=== PATIENT | female | born 1990 | race Caucasian/White ===

== ENCOUNTER 2017-01-09 11:56 | Inpatient (IN) | payer OTHER ==
--- NOTE | ~2017-01-09 | PN ---
Unit #: [id number] #: [id number] Patient: NICOLASA VALERA [id number] [facility] [address] [place] [address] [id number] I MR#: [id number] NAME: NICOLASA VALERA ROOM: 16 Age: 26 Sex: F Admission Date: 01/09/2017 : 1990 Attending Physician: Pernell Santa M.D. Admitting Physician: Phyllis Miller PROGRESS NOTES DATE January 12, 2017 DISCUSSION Ms. Valera is a 26-year-old white female, who was seen today and chart was reviewed and the case was discussed with the staff. She reports doing much better and she feels the medications have been effective at controlling her symptoms. Meanwhile, she has been coming to therapy groups and has been participating. MENTAL STATUS EXAMINATION Young white female, who was casually dressed with fair personal hygiene and appears to be in no acute distress or discomfort. She was awake and alert on interaction with intact orientation. Her mood was anxious with a congruent affect. Her speech is slow and goal-directed. She denies any suicidal or homicidal ideations, and also denies any auditory or visual hallucinations. Her insight and judgment remain slightly impaired. TREATMENT PLAN 1. We will continue her on her current medications and treatment protocol, and will monitor her response, and make further adjustments as needed. 2. We will continue to followup. Dictated by... Phyllis Miller/zeina TD: 01/13/2017 05:00 JOB #: [id number] Unit #: [id number] #: [id number] Patient: NICOLASA VALERA PROGRESS NOTES X Pernell Santa MD PROGRESS NOTE
--- NOTE | ~2017-01-09 | DS ---
Unit #: [id number] #: [id number] Patient: [facility] VALERA [id number] [facility] [place] [address] [id number] I MR#: [id number] NAME: NICOLASA VALERA ROOM: [facility] Age: 26 Sex: F Admission Date: 01/09/2017 : 1990 Discharge Date: 01/14/2017 Attending Physician: Pernell Santa M.D. DISCHARGE SUMMARY IDENTIFYING DATA Ms. Valera is a 26-year-old white female, who is a resident of [place], [place] and was brought to the hospital emergency room and transferred to us on a voluntary basis. DISCHARGE DIAGNOSES Psychiatric: Major depressive disorder, recurrent, moderate, without psychotic features; generalized anxiety disorder. Medical: None. Stressors: Moderate psychosocial stressors. HISTORY OF PRESENT ILLNESS Please see initial psychiatric evaluation for details. PAST PSYCHIATRIC HISTORY Please see initial psychiatric evaluation for details. PAST MEDICAL HISTORY Please see initial psychiatric evaluation for details. HOSPITAL COURSE The patient was admitted to the adult psychiatric unit at [facility] and was oriented to the hospital environment. Routine p.r.n. medications were initiated and she was started back on her home medications and medications were adjusted. She was taking the medications regularly and was tolerating them fairly well and was able to show a decent therapeutic response and as such, it was decided that she will be discharged home and will continue treatment on an outpatient basis. DISCHARGE MEDICATIONS Effexor XR 75 mg a day for depression and BuSpar 10 mg b.i.d. for anxiety. DISCHARGE CONDITION Stable. PROGNOSIS Fair. Dictated by... Phyllis Miller/angie Unit #: [id number] #: [id number] Patient: NICOLASA VALERA TD: 01/15/2017 00:15 JOB #: [id number] DISCHARGE SUMMARY X Pernell Santa MD X DISCHARGE SUMMARY
--- NOTE | ~2017-01-09 | PN ---
Unit #: [id number] #: [id number] Patient: NICOLASA VALERA [id number] [facility] [address] [place] [address] [id number] I MR#: [id number] NAME: NICOLASA VALERA ROOM: P131 Age: 26 Sex: F Admission Date: 01/09/2017 : 1990 Attending Physician: Pernell Santa M.D. Admitting Physician: Phyllis Miller NOTES DATE 01/13/2017 DISCUSSION Ms. Valera is a 26-year-old white female who was seen today and chart was reviewed and case was discussed with the staff. She has been doing fairly well and has been reporting improvement in her depressive symptoms. Meanwhile, she has been cooperative with treatment recommendations and has been taking medications and tolerating them fairly well with no reported side effects. MENTAL STATUS EXAMINATION Young white female who was casually dressed with fair personal hygiene and appears to be in no acute distress or discomfort. She was awake and alert on interaction with intact orientation. Her mood was anxious and depressed with congruent affect. She denies any suicidal or homicidal ideation. Her insight and judgement remains slightly impaired. TREATMENT PLAN 1. Will continue on current medications and treatment protocol and will monitor her response to the medications and make further adjustments as needed. 2. Will continue to follow up. Dictated by... Phyllis Miller/teena TD: 01/14/2017 15:46 JOB #: [id number] Unit #: [id number] #: [id number] Patient: NICOLASA VALERA PROGRESS NOTES X Pernell Santa MD X PROGRESS NOTE
--- NOTE | ~2017-01-09 | PN ---
Unit #: [id number] #: [id number] Patient: NICOLASA VALERA [id number] [facility] [address] [place] [address] [id number] I MR#: [id number] NAME: NICOLASA VALERA ROOM: 16 Age: 26 Sex: F Admission Date: 01/09/2017 : 1990 Attending Physician: Pernell Santa M.D. Admitting Physician: Phyllis Miller PROGRESS NOTES DATE OF SERVICE 01/10/2017 DISCUSSION Ms. Valera is a 26-year-old white female who was seen today. Chart was reviewed and case was discussed with the staff. She has been anxious, withdrawn, depressed, and rather seclusive to herself. Meanwhile, she has been cooperative with the treatment recommendations and has been taking the medications and tolerating them fairly well with no reported side effects. MENTAL STATUS EXAMINATION Young white female who is casually dressed with fair personal hygiene, appears to be in no acute distress or discomfort. She was awake and alert on interaction with intact orientation. Her mood is anxious and depressed with congruent affect. Speech is slow and goal-directed. She reports having suicidal ideations and denies any homicidal ideations, and also denies any auditory or visual hallucinations. Her insight and judgment remain slightly impaired. TREATMENT PLAN 1. We will continue her on her current medications and treatment protocol. We will monitor her response to the medications and make further adjustments as needed. 2. We will continue to follow up. Dictated by... Phyllis Miller/jessica TD: 01/11/2017 11:41 JOB #: [id number] Unit #: [id number] #: [id number] Patient: NICOLASA VALERA PROGRESS NOTES X Pernell Santa MD PROGRESS NOTE
--- NOTE | ~2017-01-09 | HP ---
Unit #: [id number] #: [id number] Patient: DAYLIN VALERA [id number] [place] [address] [id number] I MR#: [id number] NAME: DAYLIN VALERA ROOM: 16 Age: 26 Sex: F Admission Date: 01/09/2017 : 1990 Attending Physician: Pernell Santa M.D. Admitting Physician: Pernell Santa M.D. HISTORY AND PHYSICAL HISTORY OF PRESENT ILLNESS Daylin is a 26 year old admitted to [address] [place] [address] with depression and verbalizing wanting to hurt herself. PAST MEDICAL HISTORY Nothing significant. PAST SURGICAL HISTORY Nothing reported. ALLERGIES Cyclobenzaprine. SOCIAL HISTORY Smokes one-half pack per day. Drinks alcohol rarely and denies illicit drug use. FAMILY HISTORY Medically noncontributory. REVIEW OF SYSTEMS CONSTITUTIONAL: No fever or chills. HEENT: Denies any sore throat, ear pain or runny nose. CARDIOVASCULAR: Denies chest pain, irregular heart rhythm or palpitations. CHEST: Denies shortness of breath or cough. No hemoptysis. GASTROINTESTINAL: Denies nausea, vomiting, diarrhea or chronic constipation. ENDOCRINE: Denies history of increased thirst or urination. No recent significant weight loss or gain. GENITOURINARY: Denies dysuria, frequency, or hematuria. SKIN: Denies any rashes. HEMATOLOGIC: Denies history of increased bleeding or bruising. MUSCULOSKELETAL: Denies any hot, swollen joints. No generalized muscle pain. NEUROLOGIC: Denies problems with vision or speech. No frequent, severe headaches. No numbness, tingling or weakness in any extremities. Denies loss of bladder or bowel control. CURRENT MEDICATIONS 1. Effexor XR 75 mg q.h.s. 2. BuSpar 10 mg b.i.d. 3. Milk of Magnesia p.r.n. 4. Maalox p.r.n. Unit #: [id number] #: [id number] Patient: DAYLIN VALERA 5. Tylenol p.r.n. 6. Nicotine patch 7 mg q. day. PHYSICAL EXAMINATION GENERAL: Alert, well nourished. No apparent distress. VITAL SIGNS: Blood pressure 122/74, heart rate 100, respirations 16, and temperature 98.6. WEIGHT: 160. HEIGHT: 5 feet 0 inches. SKIN: Warm and dry without rash or lesion. HEENT: Normocephalic. TMs not viewed. Oral and nasal passages clear. Conjunctivae clear. PERRLA. EOMs intact. NECK: Supple without lymphadenopathy or thyromegaly. HEART: Regular rate and rhythm without murmur. LUNGS: Clear. ABDOMEN: Soft, nontender. : Not done. EXTREMITIES: No evidence of cyanosis, clubbing or edema. Moves all without focal deficit. NEUROLOGICAL: Grossly within normal limits. Cranial Nerves: II: Visual tolentino are intact. III, IV AND : Extraocular movements are intact. Pupils are equal, round and reactive to light. V: Facial sensation is grossly normal. VII: Facial movements and expression are normal. VIII: Auditory acuity grossly intact. IX, X: Uvula is midline. Phonation is normal. XI: Patient shrugs shoulders and turns head normally. XII: Tongue protrudes in the midline. Sensory and Motor Function: Sensory and motor sensation is grossly normal. Motor: moves all extremities well. Coordination: Gait is normal. Deep Tendon Reflexes: Intact. IMPRESSION Psychiatric admission. RECOMMENDATIONS PSYCHIATRIC: Per psychiatrist. MEDICAL: I see no contraindication to participate in this facility's activities. MEDICAL PROGNOSIS Good. MEDICAL CONDITION Stable. Dictated by... Kasia Black P.A.-C. for Phyllis Castillo/jessica TD: 01/10/2017 09:45 JOB #: [id number] Unit #: [id number] #: [id number] Patient: DAYLIN VALERA HISTORY AND PHYSICAL X Kasia Black X HISTORY AND PHYSICAL
--- NOTE | ~2017-01-09 | PA ---
Unit #: [id number] #: [id number] Patient: NICOLASA VALERA [id number] [place] [address] [id number] I MR#: [id number] NAME: NICOLASA VALERA ROOM: P116 Age: 26 Sex: F Admission Date: 01/09/2017 : 1990 Date of Assessment: Attending Physician: Pernell Santa M.D. Admitting Physician: Pernell Santa M.D. PSYCHIATRIC ASSESSMENT DATE OF SERVICE 01/09/2017. IDENTIFYING DATA Ms. Valera is a 26-year-old single white female who is a resident of [place], [place] and was brought to us from the emergency room on self-referral on a voluntary basis. CHIEF COMPLAINT "I have been feeling increasing depression and anxiety." HISTORY OF PRESENT ILLNESS Ms. Valera is a 26-year-old single white female who was transferred to us from [place] from [facility] Emergency Room, where she presented to the emergency department with feelings of increased depression and anxiety. She was concerned that she may do something if she is returned home and reports that she is not sleeping and reports decreased appetite, poor energy level, increased feelings of hopelessness and helplessness and despair, reports that she is a single mom of 3, is related to little family and support system and that she is unemployed and is struggling financially and was expressing statements of being better off gone or the kids with another relative and as such, was seen to be a significant danger to self and others and recommendation for inpatient level of care was made and the patient was medically cleared in the emergency room and then transferred to us. SUBSTANCE ABUSE HISTORY The patient denies any alcohol or drug abuse. PAST PSYCHIATRIC HISTORY The patient has not had any prior inpatient or outpatient psychiatric treatment. Review of the medical records indicate that currently she is not active in any treatment program, is not seeing a psychiatrist, and not taking any psychotropic medications. PAST MEDICAL HISTORY No acute or chronic medical illnesses. ALLERGIES Cyclobenzaprine. PERSONAL AND SOCIAL HISTORY Unit #: [id number] #: [id number] Patient: NICOLASA VALERA A 26-year-old white female who reports that she is single, unemployed, and lives at home with her 3 children and has poor social support system. MENTAL STATUS EXAMINATION Young white female who was casually dressed with fair personal hygiene, appears to be in no acute distress or discomfort. She was awake and alert on interaction with intact orientation to time, place, and person. Her mood was anxious and depressed with a congruent affect. Her speech was slow and restricted in content. Her thought processes were disorganized with some looseness of associations and suicidal ideations. Her insight and judgment remain significantly impaired. DIAGNOSTIC IMPRESSION Psychiatric: Major depressive disorder, recurrent, moderate, without psychotic features; generalized anxiety disorder. Medical: None. Stressors: Moderate psychosocial stressors. TREATMENT PLAN 1. The patient has presented with history of mood disorder and has been decompensating and will need inpatient hospitalization for safety and stabilization. We will start her back on her home medications. We will adjust the medications and we will also consider a trial of antidepressant therapy. 2. Supportive therapy was provided to the patient. ESTIMATED LENGTH OF STAY 5 to 7 days. ABILITY TO HELP SELF Limited. WILLINGNESS TO HELP SELF The patient appears to be willing to help self. STRENGTHS 1. Communicative. 2. Cooperative. PROBLEMS 1. Chronic dysphoric symptoms. 2. Poor social support system. DISCHARGE CRITERIA This will be contingent upon the patient's ability to show resolution of her depression and anxiety and her ability to stay safe to herself, particularly after discharge from the hospital. Dictated by... Phyllis Miller/angie TD: 01/10/2017 22:03 JOB #: [id number] Unit #: [id number] #: [id number] Patient: NICOLASA VALERA PSYCHIATRIC ASSESSMENT X Pernell Santa MD X PSYCHIATRIC ASSESSMENT
--- NOTE | ~2017-01-09 | PN ---
Unit #: [id number] #: [id number] Patient: NICOLASA VALERA [id number] [facility] [address] [place] [address] [id number] MR#: [id number] NAME: NICOLASA VALERA ROOM: 16 Age: 26 Sex: F Admission Date: 01/09/2017 : 1990 Attending Physician: Pernell Santa M.D. Admitting Physician: Phyllis Miller NOTES DATE OF SERVICE 01/11/2017 DISCUSSION Mr. Valera is a 26-year-old white female who was seen today. Chart was reviewed and case was discussed with the staff. She has been anxious and withdrawn though has not shown any agitation or irritability and has been exhibiting some persistent depressive symptoms. Meanwhile, she has been taking the medications and tolerating them fairly well. The patient denies any suicidal or homicidal ideation. We will monitor her response to medication and make further adjustments as needed. Dictated by... Phyllis Miller/jessica TD: 01/12/2017 09:21 JOB #: [id number] [facility] RODRIGUE[facility] NOTES X Pernell Santa MD PROGRESS NOTE
== END 2017-01-14 13:03 | disposition home or self-care (01) | DRG 885 ==
LOC: P1S 11:56
DX: F33.1 Major depressive disorder, recurrent, moderate (principal); F41.1 Generalized anxiety disorder; F17.200 Nicotine dependence, unspecified, uncomplicated